=== PATIENT | male | born 1960 | race Caucasian/White ===

== ENCOUNTER 2017-02-01 11:52 | Inpatient (IN) | payer MEDICARE ==
[~2017-02-01] VITALS: Ht 182.9 cm; Wt 97.5 kg
[~2017-02-01 11:52] MED LIST changes: -HYDR-3535 PO; -LEVE500 PO; -ZANT150T2 PO
[2017-02-01] MEDS ORDERED: ZANT150T2 PO ×2 (13:02)
[2017-02-05] MEDS ORDERED: SODIUM CHLOR 0.9% 1000 ML INJ 1,000 ML IV SCH (07:00)
[2017-02-05] MEDS ORDERED: CHLORHEXIDINE GLUCONATE 2 % 1 PACK (2 CLOTHS) TOPICAL PRN (07:15)
[2017-02-05] MEDS ORDERED: SODIUM CHLORID 0.9% 500 ML IV PRN (07:15)
[2017-02-05] MEDS ORDERED: LACTATED RINGER'S 1000 ML IV PRN (07:15)
[2017-02-05] MEDS ORDERED: METOPROLOL TARTRATE 25 MG TAB PO PRN (07:15)
[2017-02-05] MEDS ORDERED: INSULIN HUMAN REGULAR 1,000 UNITS/10 ML VIAL SQ PRN (07:15)
[2017-02-05] MEDS ORDERED: POVIDONE IODINE 5% (ANTISEPSIS KIT) 4 APPLICATIONS EACH NARE PRN (07:15)
[2017-02-05] MEDS ORDERED: VANCOMYCIN HCL 1000 MG ON-CALL/NS 250 ML IV SCH ×2 (07:30)
[2017-02-05] MEDS ORDERED: MIDAZOLAM HCL 2 MG/2 ML VIAL ONE (08:38)
[2017-02-05] MEDS ORDERED: ACETAMINOPHEN 1000 MG/100 ML VIAL IV ONE (08:38)
[2017-02-05] MEDS ORDERED: fentaNYL CITRATE 250 MCG/5 ML AMP ONE (08:39)
[2017-02-05] MEDS ORDERED: FAMOTIDINE 20 MG/2 ML VIAL ONE (08:39)
[2017-02-05] MEDS ORDERED: THROMBIN (TOPICAL) 5,000 UNIT VIAL ONE (08:52)
[2017-02-05] MEDS ORDERED: GELFOAM SIZE 100 ONE (08:52)
[2017-02-05] MEDS ORDERED: MANNITOL INJ 0 ML ONE (08:53)
[2017-02-05] MEDS ORDERED: SUGAMMADEX SODIUM 200 MG/2 ML VIAL IV PUSH ONE ×2 (08:56)
[2017-02-05] MEDS ORDERED: GADODIAMIDE PF 287 MG/ML 20 ML VIAL (for RAD MRI) IV PUSH ONE (08:57)
[2017-02-05] MEDS ORDERED: GENTAMICIN SULFATE 80 MG/2 ML VIAL ONE (08:57)
[2017-02-05] MEDS ORDERED: BUPIVACAINE/EPINEPHRINE 0.5% PF 10 ML VIAL ONE (08:57)
--- NOTE | 2017-02-05 09:09 | RADRPT ---
EXAM DATE/TIME: 02/05/2017 07:43 [facility] COMPARISON: No previous studies available for comparison. INDICATIONS : Mass. Pre op. CONTRAST: 17 cc Omniscan (gadodiamide) IV MEDICAL HISTORY : Hypertension. Diabetes mellitus type 2. SURGICAL HISTORY : Carpal tunnel/ankle ENCOUNTER: Initial ACUITY: 3 day PAIN SCORE: 0/10 LOCATION: head TECHNIQUE: An MRI brain stealth procedure was performed. The information will be used in the OR for localizatio n. FINDINGS: Limited images show an extra-axial mass involving the left frontal lobe measuring 2.4 x 1.7 cm. This generates mild mass effect upon the underlying cortex. CONCLUSION: Extra-axial mass involving the left frontal region. Irvin Angela Jr., MD on February 05, 2017 at 9:05 Board Certified Radiologist. This report was verified electronically.
[2017-02-05] MEDS ORDERED: levETIRAcetam 500 MG/5 ML VIAL IV ONE (09:47)
--- NOTE | 2017-02-05 11:24 | PD.OP ---
MD Yudith Tran MD Operative Report Date of Surgery: Feb 05, 2017 Preoperative Diagnosis: Left frontal convexity meningioma Postoperative Diagnosis: Same Procedure: Left frontal craniotomy for meningioma resection; secondary repair of dura for cerebrospinal leak anterior cranial fossa with synthetic graft; Brain[facility] stereotactic navigation; microsurgical technique Anesthesia: Gen. endotracheal by Mane Prakash Surgeon: Mike Medina M.D. Developer Prover Upholstering(s): Rebecca Ansari Operation and Findings: Following initiation of general endotracheal anesthesia the patient had invasive lines and Teran catheter in place along with sequential compression device. A gram of vancomycin and Keppra as well as 10 mg Decadron was administered intravenously and he was positioned supine and head turned slightly to the right side and secured in the [place] 3 pin headrest. The [employer] navigation system was then registered with external landmarks and good accuracy confirmed. A bicoronal frontoparietal temporal incision area head shaved and prepped with ChloraPrep and sterilely draped in the usual sterile fashion. Incision was then made after infiltrating the scalp was 0.5% Marcaine with epinephrine solution a skin incision made and Flory clips were used at the scalp edges for hemostasis and the flap retracted with hooks. Left temporalis muscle and fascia was also incised and detached from the temporal bone and retracted with hooks. With an automated co op temporal bur hole made in the frontotemporal keyhole as well as the right frontal polar near the midline and then with the craniotome the bone flap was elevated. There was significant hyperostosis of the skull and the underlying dura was exposed. I could identify this mass borders and a circumferential dural resection was undertaken as this mass was originating and adhered to the dura and compressing on the cortical surface but not invading this consistent with a meningioma. Resection of this mass was undertaken using microtechnique microscope magnification along with the BrainLab navigation guidance. A gross total resection was achieved along with the dural defect from resection. This was repaired with the synthetic duragen graft. Bone flap approximated using Davon mini plates and vanessa hole covers. The area was then copiously irrigated. The temporalis fascia was approximated and using 2-0 Vicryl sutures and the galea reapproximated using 3-0 Vicryl interrupted sutures and final scalp closure was with elizabeth. The Lim head was then removed and a sterile pressing dressing applied. There were no intraoperative complications and all sponge and needle count was correct at the end of the procedure. Estimated blood loss about 30 cc. Patient was extubated and taken to the recovery room. Mike Medina MD Feb 05, 2017 11:24
[2017-02-05] MEDS ORDERED: niCARdipine INJ 25 MG in SODIUM CHLOR 0.9% 250 ML INJ 250 ML IV PRN (11:30)
[2017-02-05] MEDS ORDERED: RESP: ALBUTEROL 2.5 MG/3 ML NEB (PRN) NEB (11:30)
[2017-02-05] MEDS ORDERED: POTASSIUM CHLOR 20 MEQ PREMIX 100 ML IV PRN (11:30)
[2017-02-05] MEDS ORDERED: DEXTROSE 50% IN WATER 50 ML VIAL(D50) IV PRN (11:30)
[2017-02-05] MEDS ORDERED: MAGNESIUM SULFATE INJ 2 GM in SODIUM CHLORIDE 0.9% INJ 100 ML IV PRN (11:30)
[2017-02-05] MEDS ORDERED: CALCIUM GLUCONATE INJ 1 GM in SODIUM CHLORIDE 0.9% INJ 100 ML IV PRN (11:30)
[2017-02-05] MEDS ORDERED: TEMAZEPAM 15 MG CAP PO PRN (11:30)
[2017-02-05] MEDS ORDERED: ACETAMINOPHEN/HYDROcodone 325 MG/10 MG TAB PO PRN (11:30)
[2017-02-05] MEDS ORDERED: ACETAMINOPHEN 325 MG TAB PO PRN (11:30)
[2017-02-05] MEDS ORDERED: FAMOTIDINE 20 MG TAB PO PRN (11:30)
[2017-02-05] MEDS ORDERED: ALUMINUM/MAGNESIUM/SIMETH 30 ML CUP PO PRN (11:30)
[2017-02-05] MEDS ORDERED: SODIUM CHLORIDE 0.9% FLUSH 10 ML FLUSH IV FLUSH PRN (11:30)
[2017-02-05] MEDS ORDERED: MENTHOL LOZENGE BUCCAL PRN (11:30)
[2017-02-05] MEDS ORDERED: LABETALOL HCL 100 MG/20 ML VIAL IV PRN (11:30)
[2017-02-05] MEDS ORDERED: METOCLOPRAMIDE HCL 10 MG/2 ML VIAL IVS PRN (11:30)
[2017-02-05] MEDS ORDERED: LORazepam 2 MG/ML VIAL IVP PRN (11:30)
[2017-02-05] MEDS ORDERED: ONDANSETRON HCL 4 MG/2 ML VIAL IV PRN (11:30)
[2017-02-05] MEDS ORDERED: cloNIDine HCL 0.1 MG TAB PO PRN (11:30)
[2017-02-05] MEDS ORDERED: MORPHINE SULFATE 4 MG/ML INJ IV PRN (11:30)
[2017-02-05] MEDS ORDERED: MAGNESIUM HYDROXIDE SUSP 30 ML CUP PO PRN (11:30)
[2017-02-05] MEDS ORDERED: GLUCAGON 1 MG/ML VIAL OTHER PRN (11:30)
[2017-02-05] MEDS ORDERED: DO NOT ADM ANY ANTICOAGULANT DRUGS PRN (11:38)
[2017-02-05] MEDS ORDERED: *morphine SULFATE 8 MG/ML PERIprocedure ONLY ONE ×3 (11:49→12:56)
[2017-02-05] MEDS ORDERED: PROPOFOL 200 MG/20 ML AMP IV ONE (12:00)
[2017-02-05] MEDS ORDERED: ONDANSETRON HCL 4 MG/2 ML VIAL IV PUSH ONE (12:00)
[2017-02-05] MEDS ORDERED: ePHEDrine/NS 25 MG/5 ML SYR IV ONE (12:00)
[2017-02-05] MEDS ORDERED: PHENYLEPH/NS 1000 MCG/10 ML SYR IV ONE (12:00)
[2017-02-05] MEDS ORDERED: LACTATED RINGER'S 1000 ML INJ 2,000 ML IV ONE (12:00)
[2017-02-05] MEDS ORDERED: SODIUM CHLORID 0.9% 500 ML INJ 500 ML IV ONE (12:00)
[2017-02-05] MEDS: NS + KCL 20 MEQ INJ 1,000 ML IV SCH (12:30)
[2017-02-05 12:49] LABS: MEAN CELL VOLUME 89.2 FL (80.0-100.0); MEAN CORPUSCULAR HEMOGLOBIN 30.9 PG (27.0-34.0); MEAN CORPUSCULAR HGB CONC 34.6 % (32.0-36.0); PLATELET COUNT 166 TH/MM3 (150-450); RED BLOOD COUNT 4.94 MIL/MM3 (4.50-5.90); RED CELL DISTRIBUTION WIDTH 12.6 % (11.6-17.2); REVIEW FLAG FINAL; WHITE BLOOD COUNT 6.6 TH/MM3 (4.0-11.0)
[2017-02-05] MEDS ORDERED: ceFAZolin INJ 1,000 MG VIAL ONE (13:05)
[2017-02-05 13:11] LABS: BICARBONATE 24.2 MEQ/L (21.0-32.0); MAGNESIUM 1.8 MG/DL (1.5-2.5); POTASSIUM 4.3 MEQ/L (3.5-5.1)
[2017-02-05] MEDS ORDERED: *diphenhydrAMINE HCL 50 MG/ML VIAL PERIprocedural Use ONLY ONE (14:10)
[2017-02-05] MEDS ORDERED: MAGNESIUM SULFATE 1 GM PREMIX 200 ML ONE (14:42)
[2017-02-05] MEDS: DEXAMETHASONE SOD PHOS 4 MG/ML VIAL IV SCH ×2 (17:00→21:53)
[2017-02-05] MEDS: INSULIN NovoLIN REGULAR SUPPLEMENTAL SCALE SQ SCH ×2 (17:00→21:55)
[2017-02-05 18:15] VITALS: BP 129/63; PULSE 82; RESP 22; TEMP 98.7; O2SAT 96
[2017-02-05 18:30] VITALS: PULSE 82
[2017-02-05] MEDS: ACETAMINOPHEN/HYDROcodone 325 MG/10 MG TAB PO PRN ×2 (18:30→22:32)
[2017-02-05 20:00] VITALS: BP 140/81; PULSE 82; RESP 21; TEMP 98.3; O2SAT 95
[2017-02-05 20:35] VITALS: O2SAT 95
[2017-02-05] MEDS: DOCUSATE SODIUM 100 MG CAP PO SCH (21:00)
[2017-02-05] MEDS: levETIRAcetam 500 MG TAB PO SCH (21:53)
[2017-02-05] MEDS: SODIUM CHLORIDE 0.9% FLUSH 10 ML FLUSH IV FLUSH SCH (21:53)
[2017-02-05 22:00] VITALS: PULSE 78
[2017-02-06] VITALS (10 sets, daily range): BP systolic 115–128; BP diastolic 59–69; PULSE 64–73; RESP 11–19; TEMP 98–98.7; O2SAT 91–96
[2017-02-06] MEDS: NS + KCL 20 MEQ INJ 1,000 ML IV SCH (03:27)
[2017-02-06] MEDS: DEXAMETHASONE SOD PHOS 4 MG/ML VIAL IV SCH ×2 (03:28→09:30)
--- NOTE | 2017-02-06 04:43 | RADRPT ---
EXAM DATE/TIME: 02/06/2017 04:10 [facility] COMPARISON: MRI BRAIN STEALTH W CONTRAST, February 05, 2017, 7:43. INDICATIONS : Post craniotomy; tumor resection. RADIATION DOSE: 37.88 CTDIvol (mGy) MEDICAL HISTORY : Hypertension. Diabetes mellitus type 2. SURGICAL HISTORY : None. ENCOUNTER: Initial ACUITY: 2 days PAIN SCALE: 0/10 LOCATION: cranial TECHNIQUE: Multiple contiguous axial images were obtained of the head. Using automated exposure control and adj ustment of the mA and/or kV according to patient size, radiation dose was kept as low as reasonably a chievable to obtain optimal diagnostic quality images. DICOM format image data is available electro nically for review and comparison. FINDINGS: Compared with recent MRI, patient is status post a left frontal craniotomy with resection of extra-ax ial mass. There is a small amount of residual hemorrhage in the left frontal region measuring about 8 mm in diameter in the extra-axial space. Trace pneumocephalus. Subcutaneous air present. Left-sided scalp swelling. CONCLUSION: 1. Postoperative left frontal craniotomy with resection of extra-axial mass. Small residual extra-axi al hemorrhage remains measuring about 8 mm in thickness. There is overlying scalp swelling, skin stap les. Trace pneumocephalus. Cheko Addison MD on February 06, 2017 at 4:38 Board Certified Radiologist. This report was verified electronically.
[2017-02-06] MEDS: INSULIN NovoLIN REGULAR SUPPLEMENTAL SCALE SQ SCH ×4 (06:49→21:00)
[2017-02-06] MEDS: DOCUSATE SODIUM 100 MG CAP PO SCH ×3 (08:35→20:47)
--- NOTE | 2017-02-06 09:11 | HHI.NSPN ---
(Kenrick Malin) History Chief Complaint: Incisional pain. (Kenrick Malin) Interval History s/p left frontal craniotomy for meningioma resection on 02/05/17. Pt complains of incisional discomfort. No nausea or vomiting. No paresthesias in face or extremities. Pt ambulating well. (Kenrick Malin) Review of Systems General: Negative for: fever, chills, insomnia Respiratory: Negative for: shortness of breath, cough, sputum Cardiovascular: Negative for: chest pain Gastrointestinal: Negative for: nausea, vomitting, diarrhea, constipation ( Kenrick Malin) Exam Results Vital Signs Date Time Temp Pulse Resp B/P (MAP) Pulse Ox O2 Delivery O2 Flow Rate FiO2 02/06/17 06:00 68 02/06/17 04:00 98.6 19 118/67 (84) 95 02/06/17 03:50 2.00 02/05/17 20:35 Nasal Cannula Intake and Output 02/06/17 02/06/17 02/06/17 07:59 15:59 23:59 Intake Total 1184 ml Output Total 1800 ml Balance -616 ml (Kenrick Malin) Physical Examination Resp: CTA bilaterally Heart: NSR no murmurs Abd: Soft positive bs Skin: Incision clean and dry. [place] in place. Mild left periorbital ecchymosis. Muscle: Moves all 4 extremities symmetrically. Neuro: Pt awake and alert. Sitting up in chair. Ambulated earlier. Follows commands well. Speech clear and appropriate. (Kenrick Malin) Lab, Micro, Other Results Laboratory Tests Test 02/05/17 12:20 White Blood Count 6.6 TH/MM3 Red Blood Count 4.94 MIL/MM3 Hemoglobin 15.2 GM/DL Hematocrit 44.0 % Mean Corpuscular Volume 89.2 FL Mean Corpuscular Hemoglobin 30.9 PG Mean Corpuscular Hemoglobin Concent 34.6 % Red Cell Distribution Width 12.6 % Platelet Count 166 TH/MM3 Mean Platelet Volume 10.3 FL Blood Urea Nitrogen 18 MG/DL Creatinine 0.95 MG/DL Random Glucose 225 MG/DL Calcium Level 8.3 MG/DL Magnesium Level 1.8 MG/DL Sodium Level 137 MEQ/L Potassium Level 4.3 MEQ/L Chloride Level 104 MEQ/L Carbon Dioxide Level 24.2 MEQ/L Anion Gap 9 MEQ/L Estimat Glomerular Filtration Rate 81 ML/MIN (Kenrick Malin) Medical Decision Making Impression and Plan A: 57 y/o M s/p left frontal craniotomy for meningioma resection. P: Continue to monitor neuro exam transfer to floor. Continue with PT (Kenrick Malin) Attending Statement The exam, history, and the medical decision-making described in the above note were completed with the assistance of the mid-level provider. I reviewed and agree with the findings presented. I attest that I had a [id number] encounter with the patient on the same day, and personally performed and documented my assessment and findings in the medical record. Doing very well postoperatively. Walking in hallway and tolerating solid food. Transfer to floor. (Mike Medina MD) Kenrick Malin Feb 06, 2017 09:11 Mike Medina MD Feb 06, 2017 14:02
[2017-02-06] MEDS: LISINOPRIL 10 MG TAB PO SCH (09:31)
[2017-02-06] MEDS: PANTOPRAZOLE SOD 40 MG DELAYED RELEASE TAB PO SCH (09:31)
[2017-02-06] MEDS: levETIRAcetam 500 MG TAB PO SCH ×2 (09:31→21:37)
[2017-02-06] MEDS: SODIUM CHLORIDE 0.9% FLUSH 10 ML FLUSH IV FLUSH SCH ×2 (09:32→20:47)
[2017-02-06] MEDS: ACETAMINOPHEN/HYDROcodone 325 MG/10 MG TAB PO PRN ×3 (09:32→20:46)
[2017-02-06] MEDS: diphenhydrAMINE HCL 50 MG CAP PO PRN (15:20)
[2017-02-06] MEDS: metFORMIN HCL 500 MG TAB PO SCH (18:06)
[2017-02-07] VITALS: BP 122/68; PULSE 58; RESP 12; TEMP 98.1; O2SAT 98
[2017-02-07 00:07] VITALS: O2SAT 98
[2017-02-07 04:00] VITALS: BP 131/72; PULSE 58; RESP 18; TEMP 98.1; O2SAT 97
[2017-02-07] MEDS: INSULIN NovoLIN REGULAR SUPPLEMENTAL SCALE SQ SCH ×2 (07:00→11:00)
[2017-02-07] MEDS: ACETAMINOPHEN/HYDROcodone 325 MG/10 MG TAB PO PRN (07:31)
[2017-02-07] MEDS: diphenhydrAMINE HCL 50 MG CAP PO PRN (07:31)
[2017-02-07 07:55] VITALS: O2SAT 98
[2017-02-07 08:00] VITALS: BP 120/64; PULSE 60; RESP 20; TEMP 97.9; O2SAT 97
--- NOTE | 2017-02-07 08:39 | HHI.NSPN ---
(Kenrick Malin) History Chief Complaint: Incisional pain. (Kenrick Malin) Interval History s/p left frontal craniotomy for meningioma resection on 02/05/17. Pt complains of incisional discomfort. No nausea or vomiting. No paresthesias in face or extremities. Pt ambulating well. 02/07/17: Pt awake and alert. Mild incisional discomfort. No nausea or vomiting. Ambulating well. No aphasia. (Kenrick Malin) Review of Systems General: Negative for: fever, chills, insomnia Respiratory: Negative for: shortness of breath, cough, sputum Cardiovascular: Negative for: chest pain Gastrointestinal: Negative for: nausea, vomitting, diarrhea, constipation ( Kenrick Malin) Exam Results Vital Signs Date Time Temp Pulse Resp B/P (MAP) Pulse Ox O2 Delivery O2 Flow Rate FiO2 02/07/17 07:55 98 21 02/07/17 07:00 Room Air 02/07/17 04:00 98.1 58 18 131/72 (91) 02/06/17 03:50 2.00 Intake and Output 02/07/17 02/07/17 02/07/17 07:59 15:59 23:59 Intake Total 360 ml Balance 360 ml (Kenrick Malin) Physical Examination Resp: CTA bilaterally Heart: NSR no murmurs Abd: Soft positive bs Skin: Incision clean and dry. [place] in place. Mild left periorbital ecchymosis. Muscle: Moves all 4 extremities symmetrically. Neuro: Pt awake and alert. Sitting up in bed. Follows commands well. Speech clear and appropriate. (Kenrick Malin) Lab, Micro, Other Results Last Impressions Head CT 02/06/17 0600 Signed Impressions: Service Date/Time: Monday, February 06, 2017 04:10 - CONCLUSION: 1. Postoperative left frontal craniotomy with resection of extra-axial mass. Small residual extra-axial hemorrhage remains measuring about 8 mm in thickness. There is overlying scalp swelling, skin elizabeth. Trace pneumocephalus. Cheko Addison MD Brain MRI 02/05/17 0622 Signed Impressions: Service Date/Time: Sunday, February 05, 2017 07:43 - CONCLUSION: Extra-axial mass involving the left frontal region. Irvin Angela Jr., MD (Kenrick Malin) Medical Decision Making Impression and Plan A: 57 y/o M s/p left frontal craniotomy for meningioma resection. P: Continue to monitor neuro exam transfer to floor. Continue with PT (Kenrick Malin) Attending Statement The exam, history, and the medical decision-making described in the above note were completed with the assistance of the mid-level provider. I reviewed and agree with the findings presented. I attest that I had a [id number] encounter with the patient on the same day, and personally performed and documented my assessment and findings in the medical record. Neurologically stable and doing very well. Tolerating regular diet and ambulating. Stable for discharge and follow-up in the office in 1 week. (Mike Medina MD) Kenrick Malin Feb 07, 2017 08:39 Mike Medina MD Feb 07, 2017 11:06
[2017-02-07] MEDS: SODIUM CHLORIDE 0.9% FLUSH 10 ML FLUSH IV FLUSH SCH (09:00)
[2017-02-07] MEDS: PANTOPRAZOLE SOD 40 MG DELAYED RELEASE TAB PO SCH (09:16)
[2017-02-07] MEDS: levETIRAcetam 500 MG TAB PO SCH (09:16)
[2017-02-07] MEDS: metFORMIN HCL 500 MG TAB PO SCH (09:16)
[2017-02-07] MEDS: DOCUSATE SODIUM 100 MG CAP PO SCH (09:17)
[2017-02-07] MEDS: LISINOPRIL 10 MG TAB PO SCH (09:17)
[2017-02-07] MEDS ORDERED: HYDR-3535 PO (11:10)
[2017-02-20] MEDS ORDERED: HYDR-3535 PO (13:45)
[2017-03-02] MEDS ORDERED: LEVE500 PO (11:33)
== END 2017-02-07 12:22 | disposition home or self-care (01) | DRG 26 ==
LOC: HSDI 02-05 06:01 → N03A 02-05 18:07
PROVIDERS: ADMIT Neurological Surgery; ATTEND Neurological Surgery
PROC: 00U20JZ Supplement Dura Mater with Synthetic Substitute, Open Approach (ICD-10-PCS; 2017-02-05)
PROC: 00B20ZZ Excision of Dura Mater, Open Approach (ICD-10-PCS; principal; 2017-02-05 09:05)
DX: D32.0 Benign neoplasm of cerebral meninges (principal); G96.0 Cerebrospinal fluid leak; I10 Essential (primary) hypertension; M85.2 Hyperostosis of skull; E11.9 Type 2 diabetes mellitus without complications; Z96.632 Presence of left artificial wrist joint; Z96.662 Presence of left artificial ankle joint; K21.9 Gastro-esophageal reflux disease without esophagitis; Z79.4 Long term (current) use of insulin
CPT/HCPCS: 70450; 70552; 80048; 82948; 83735; 85027; 86850; 86900; 86901; 88307; 94150; A9579; C1713; J0131; J0690; J1100; J1200; J1580; J1815; J1953; J2150; J2250; J2270; J2370; J2405; J3010; J3475; J3480; J7040; J7120; Q0163

== ENCOUNTER → 2017-02-01 | Outpatient (CLI) | payer MEDICARE ==
[~2017-02-01] MED LIST: HYDR-3535 PO; LEVE500 PO; LISI10TA3 PO; METF500T PO; TEMA30CA PO; ZANT150T2 PO
== END ==
LOC: CPRE 12:09
PROVIDERS: ATTEND Neurological Surgery
DX: D32.0 Benign neoplasm of cerebral meninges (principal)